=== PATIENT | female | born 1985 | race Caucasian/White ===

== ENCOUNTER 2021-04-08 21:04 | Inpatient (IN) | payer OTHER ==
[~2021-04-08] VITALS: Ht 165.1 cm; Wt 79.8 kg
[2021-04-08] MEDS ORDERED: METHYLERGONOVINE MALEATE 0.2 MG/ML IM PRN (22:15)
[2021-04-08] MEDS ORDERED: CARBOPROST TROMETHAMINE 250 MCG/ML AMPUL IM PRN (22:15)
[2021-04-08] MEDS ORDERED: NALOXONE HCL 0.4 MG/ML 1ML VIAL IM PRN (22:15)
[2021-04-08] MEDS: LACTATED RINGERS 1,000 ML IV SCH (22:58)
[2021-04-08] MEDS ORDERED: PENICILLIN G POTASSIUM 5 MMU in DEXT 5% WATER 100 ML IV SCH (23:45)
[2021-04-09] MEDS ORDERED: MISOPROSTOL 100MCG TABLET VG SCH
[2021-04-09 00:12] LABS: CLARITY URINE CLEAR (CLEAR); COLOR URINE YELLOW (YELLOW); KETONES URINE 3+ (NEGATIVE); LEUKOCYTE ESTERASE URINE NEGATIVE (NEGATIVE); NITRITE URINE NEGATIVE (NEGATIVE); OCCULT BLOOD URINE NEGATIVE (NEGATIVE); PH URINE 5.5 (4.5-8.0); PROTEIN URINE NEGATIVE (NEGATIVE); SPECIFIC GRAVITY URINE 1.021 (1.005-1.030)
[2021-04-09] MEDS ORDERED: DEXT 5%/LR + PITOCIN 20UNITS/L 1,000 ML IV SCH ×2 (00:15→13:15)
[2021-04-09 00:21] LABS: PARTIAL THROMBOPLASTIN TIME 30.6 sec (23.4-31.0); PROTHROMBIN TIME 10.3 sec (9.6-11.0)
[2021-04-09 00:23] LABS: *AMPHETAMINES SCREEN URINE NEGATIVE (NEGATIVE); *BENZODIAZEPINES SCREEN URINE NEGATIVE (NEGATIVE); *COCAINE SCREEN URINE NEGATIVE (NEGATIVE); CANNABINOID URINE SCREEN NEGATIVE (NEGATIVE); METHADONE URINE SCREEN NEGATIVE (NEGATIVE); OPIATES URINE SCREEN NEGATIVE (NEGATIVE); PHENCYCLIDINE URINE SCREEN NEGATIVE (NEGATIVE)
[2021-04-09 00:24] LABS: *BARBITURATES SCREEN URINE NEGATIVE (NEGATIVE)
[2021-04-09] MEDS: DEXT 5%/LR + PITOCIN 20UNITS/L 1,000 ML IV SCH ×2 (00:27→13:06)
[2021-04-09] MEDS: BUTORPHANOL TARTRATE 2 MG/ML VIAL IV PRN ×2 (00:45→07:44)
[2021-04-09] MEDS: LACTATED RINGERS 1,000 ML IV SCH ×3 (00:51→11:39)
[2021-04-09 01:10] LABS: HEPATITIS B SURFACE ANTIGEN NEGATIVE
[2021-04-09 01:23] LABS: BASOPHILS % 0.4 % (0.0-2.0); EOSINOPHILS % 1.3 % (0.0-5.0); HEMOGLOBIN. 11.5 g/dL (12.0-16.0); LYMPHOCYTES % 16.3 % (20.0-50.0); MEAN CORPUSCULAR HEMOGLOBIN 29.5 pg (28.0-32.0); MEAN CORPUSCULAR VOLUME 86.7 fL (81.0-99.0); MEAN PLATELET VOLUME 8.5 fl (7.4-10.4); MONOCYTES % 6.8 % (2.0-8.0); NEUTROPHILS % 75.2 % (40.0-76.0); PLATELET 245 x1000/uL (130-400); RED BLOOD CELL COUNT 3.92 mill/uL (4.2-5.4); RED CELL DISTRIBUTION WIDTH 16.4 % (11.6-14.6)
[2021-04-09] MEDS ORDERED: PREN1TAB23 PO (01:56)
[2021-04-09] MEDS ORDERED: PENICILLIN G POTASSIUM 2.5 MMU in DEXTROSE 5% WATER 50 ML IV SCH (04:00)
[2021-04-09] MEDS ORDERED: ROPIVACAINE HCL/PF EPIDURAL 200 ML EPI SCH (09:00)
[2021-04-09] MEDS ORDERED: ROPIVACAINE HCL/PF EPIDURAL 200 ML EP SCH (09:00)
[2021-04-09] MEDS ORDERED: DIPHENHYDRAMINE 25MG CAPSULE PO PRN (13:15)
[2021-04-09] MEDS ORDERED: HEMORRHOIDAL SUPP PR PRN (13:15)
[2021-04-09] MEDS ORDERED: LANOLIN OINT 7GM TUBE TOP PRN (13:15)
[2021-04-09] MEDS ORDERED: GLYCERIN/WITCH HAZEL LEAF MEDICATED PAD TOP PRN (13:15)
[2021-04-09] MEDS ORDERED: RHO(D) IMMUNE GLOBULIN 300 MCG/SYR IM PRN (13:15)
[2021-04-09] MEDS ORDERED: BISACODYL 10MG SUPP PR PRN (13:15)
[2021-04-09] MEDS ORDERED: IBUPROFEN 400MG TABLET PO PRN (13:15)
[2021-04-09] MEDS ORDERED: ACETAMINOPHEN WITH CODEINE 300/30MG TABLET PO PRN (13:15)
[2021-04-09] MEDS ORDERED: BENZOCAINE/LANOLIN/ALOE VERA SPRAY TOP PRN (13:15)
[2021-04-09 15:15] VITALS: BP 100/50
[2021-04-09] MEDS: IBUPROFEN 800MG TABLET PO PRN ×2 (15:44→22:14)
[2021-04-09 16:15] VITALS: BP 94/52
[2021-04-09 16:45] VITALS: BP 101/50
[2021-04-09 19:30] VITALS: BP 98/42
[2021-04-09] MEDS: MAGNESIUM/ALUMINUM HYDROXIDE/SIMETHICONE 30ML UDC PO SCH (21:09)
[2021-04-09] MEDS: SIMETHICONE 80MG TABLET CHEW PO SCH (21:10)
[2021-04-09] MEDS: DOCUSATE SODIUM 100MG CAPSULE PO SCH (21:10)
[2021-04-10 03:00] VITALS: BP 100/52
[2021-04-10] MEDS: IBUPROFEN 800MG TABLET PO PRN ×3 (05:39→20:59)
[2021-04-10 06:57] LABS: BASOPHILS % 0.3 % (0.0-2.0); EOSINOPHILS % 1.4 % (0.0-5.0); HEMATOCRIT. 30.8 % (36.0-48.0); HEMOGLOBIN. 10.3 g/dL (12.0-16.0); LYMPHOCYTES % 18.2 % (20.0-50.0); MEAN CORPUSCULAR HEMOGLOBIN 29.1 pg (28.0-32.0); MEAN CORPUSCULAR VOLUME 87.1 fL (81.0-99.0); MEAN PLATELET VOLUME 8.1 fl (7.4-10.4); MONOCYTES % 8.6 % (2.0-8.0); NEUTROPHILS % 71.5 % (40.0-76.0); PLATELET 183 x1000/uL (130-400); RED BLOOD CELL COUNT 3.53 mill/uL (4.2-5.4)
[2021-04-10] MEDS: MAGNESIUM/ALUMINUM HYDROXIDE/SIMETHICONE 30ML UDC PO SCH ×3 (07:30→17:30)
[2021-04-10] MEDS: FERROUS SULFATE 325MG TABLET PO SCH ×3 (07:30→17:30)
[2021-04-10] MEDS: SIMETHICONE 80MG TABLET CHEW PO SCH ×3 (08:00→18:00)
[2021-04-10 08:15] VITALS: BP 95/53
[2021-04-10] MEDS: PRENATAL VIT/FE FUMARATE/FA TABLET PO SCH (08:29)
[2021-04-10 15:22] VITALS: BP 90/53
[2021-04-10 21:00] VITALS: BP 98/53
[2021-04-10] MEDS: DOCUSATE SODIUM 100MG CAPSULE PO SCH (21:00)
[2021-04-11 05:00] VITALS: BP 100/53
[2021-04-11] MEDS: IBUPROFEN 800MG TABLET PO PRN (05:03)
[2021-04-11 07:30] VITALS: BP 90/53
[2021-04-11] MEDS: MAGNESIUM/ALUMINUM HYDROXIDE/SIMETHICONE 30ML UDC PO SCH (08:02)
[2021-04-11] MEDS: FERROUS SULFATE 325MG TABLET PO SCH (08:03)
[2021-04-11] MEDS: PRENATAL VIT/FE FUMARATE/FA TABLET PO SCH (08:03)
[2021-04-11] MEDS ORDERED: IBUP-2030 PO (08:22)
== END 2021-04-11 09:50 | disposition home or self-care (01) | DRG 560 ==
LOC: 8 EST LDRP 21:04 → 8EST 04-09 13:37
PROVIDERS: ADMIT Obstetrics & Gynecology; ATTEND Obstetrics & Gynecology
PROC: 10E0XZZ Delivery of Products of Conception, External Approach (ICD-10-PCS; principal; 2021-04-09)
PROC: 0HQ9XZZ Repair Perineum Skin, External Approach (ICD-10-PCS; 2021-04-09)
PROC: 3E0R3BZ Introduction of Anesthetic Agent into Spinal Canal, Percutaneous Approach (ICD-10-PCS; 2021-04-09)
PROC: 3E0R33Z Introduction of Anti-inflammatory into Spinal Canal, Percutaneous Approach (ICD-10-PCS; 2021-04-09)
DX: O48.0 Post-term pregnancy (principal); Z37.0 Single live birth; J45.909 Unspecified asthma, uncomplicated; Z3A.40 40 weeks gestation of pregnancy; Z20.822 Contact with and (suspected) exposure to COVID-19; O99.52 Diseases of the respiratory system complicating childbirth; O69.81X0 Labor and delivery complicated by cord around neck, without compression, not applicable or unspecified; O70.0 First degree perineal laceration during delivery
CPT/HCPCS: 36415; 76805; 76818; 80305; 81003; 85025; 86592; 86703; 86762; 86850; 86900; 87340; 87426; 99281; G0378; J0595; J2540; J2590; J2795; J7060; A4315